=== PATIENT | male | born 1960 | race Caucasian/White ===

== ENCOUNTER → 2024-02-19 13:55 | Outpatient (REF) | payer BC, SELFPAY | LOC: HWRAD 13:55 | PROVIDERS: ATTENDING PHYSICIAN Family Medicine | DX: S61.432A Puncture wound without foreign body of left hand, initial encounter (principal) | CPT/HCPCS: 73140 ==

== ENCOUNTER → 2024-06-13 15:01 | Outpatient (REF) | payer MEDICARE, SELFPAY | LOC: HWRAD 15:01 | PROVIDERS: ATTENDING PHYSICIAN Family Medicine | DX: M79.672 Pain in left foot (principal) | CPT/HCPCS: 73630 ==

== ENCOUNTER → 2024-08-25 07:47 | Outpatient (REF) | payer MEDICARE, SELFPAY | LOC: RAD 07:47 | PROVIDERS: ATTENDING PHYSICIAN Surgery Vascular Surgery; FAMILY PHYSICIAN Family Medicine | DX: I77.79 Dissection of other specified artery (principal) | CPT/HCPCS: 74174; Q9967 ==